=== PATIENT | female | born 1995 | race Caucasian/White ===

== ENCOUNTER 2017-12-10 16:57 | Emergency (ER) | payer OTHER ==
[2017-12-10 17:16] VITALS: BP 110/73; PULSE 82; RESP 18; TEMP 98.3
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
== END 2017-12-10 18:35 | disposition home or self-care (01) ==
LOC: EC 16:57
DX: S00.11XA Contusion of right eyelid and periocular area, initial encounter (principal); Y04.0XXA Assault by unarmed brawl or fight, initial encounter
CPT/HCPCS: 99284